=== PATIENT | female | born 1970 | race Caucasian/White ===

== ENCOUNTER 2022-06-02 12:32 | Day surgery (SDC) | payer OTHER ==
[2022-05-28 12:13] VITALS: BMI 24.7
[2022-06-02 13:59] VITALS: RESP 16; TEMP 98
[2022-06-02 14:01] VITALS: BP 120/74; PULSE 68
== END 2022-06-02 14:09 | disposition home or self-care (01) ==
LOC: FASU-ENDO 12:32
PROVIDERS: ATTEND Internal Medicine Gastroenterology
PROC: 0DBN8ZX Excision of Sigmoid Colon, Via Natural or Artificial Opening Endoscopic, Diagnostic (ICD-10-PCS; 2022-06-02)
PROC: 0DBP8ZX Excision of Rectum, Via Natural or Artificial Opening Endoscopic, Diagnostic (ICD-10-PCS; principal; 2022-06-02 13:04)
DX: Z12.11 Encounter for screening for malignant neoplasm of colon (principal); Z86.010 Personal history of colon polyps; K63.5 Polyp of colon; K62.1 Rectal polyp; K57.30 Diverticulosis of large intestine without perforation or abscess without bleeding; K64.1 Second degree hemorrhoids; K64.4 Residual hemorrhoidal skin tags
CPT/HCPCS: 81025; 88305-TC

== ENCOUNTER 2022-08-04 10:29 | Day surgery (SDC) | payer OTHER ==
[2022-08-03 15:58] VITALS: BMI 24.7
[2022-08-04 12:35] VITALS: BP 114/74; PULSE 60; RESP 19; TEMP 97.7
== END 2022-08-04 12:44 | disposition home or self-care (01) ==
LOC: FASU-ENDO 10:29
PROVIDERS: ATTEND Internal Medicine Gastroenterology
PROC: 0DB68ZX Excision of Stomach, Via Natural or Artificial Opening Endoscopic, Diagnostic (ICD-10-PCS; 2022-08-04)
PROC: 0DB48ZX Excision of Esophagogastric Junction, Via Natural or Artificial Opening Endoscopic, Diagnostic (ICD-10-PCS; 2022-08-04)
PROC: 0DB98ZX Excision of Duodenum, Via Natural or Artificial Opening Endoscopic, Diagnostic (ICD-10-PCS; principal; 2022-08-04 11:46)
DX: Z13.810 Encounter for screening for upper gastrointestinal disorder (principal); K29.50 Unspecified chronic gastritis without bleeding; K21.00 Gastro-esophageal reflux disease with esophagitis, without bleeding; Z87.19 Personal history of other diseases of the digestive system
CPT/HCPCS: 88305-TC; 88342-TC